=== PATIENT | male | born 1955 | race Caucasian/White ===

== ENCOUNTER → 2017-12-03 14:10 | Outpatient (CLI) | payer BC, SELFPAY ==
[2017-12-03 14:20] LABS: Microscopic, Urine URINE MICROSCOPIC (MICROSCOPIC)
[2017-12-03 14:41] LABS: Basophils % 0.4 % (0.1-2.0); Eosinophils # 0.1 K/mm3 (0.0-0.4); Eosinophils % 1.7 % (0.1-12.0); Hematocrit 43.5 % (42.0-52.0); Hemoglobin 14.8 g/dL (14.1-18.0); Lymphocytes # 1.6 K/mm3 (0.7-4.5); Lymphocytes % 31.2 K/mm3 (10-50); Mean Corpuscular HGB Conc 34.1 g/dL (31.8-35.4); Mean Corpuscular Hemoglobin 27.9 pg (27.0-31.2); Mean Corpuscular Volume 81.8 fl (80-94); Mean Platelet Volume 7.4 fl (7.4-10.4); Monocytes # 0.3 K/mm3 (0.1-1.0); Monocytes % 6.5 % (1.7-9.3); Neutrophils # 3.2 K/mm3 (1.8-7.8); Neutrophils % 60.2 % (37.0-80.0); Platelet Count 211 K/mm3 (142-424); Red Blood Count 5.32 M/mm3 (4.60-6.20); Red Cell Distribution Width 12.7 % (11.5-17.5); White Blood Count 5.2 K/mm3 (4.8-10.8)
[2017-12-03 14:42] LABS: Appearance,Urine SL CLOUDY (Clear); Bilirubin,Urine Negative (Negative); Blood, Urine TRACE-I (Negative); Color,Urine YELLOW (Yellow); Glucose,Urine (UA) Negative (Negative); Ketones,Urine Negative (Negative); Leukocyte Esterase,Urine Negative (Negative); Nitrate,Urine Negative (Negative); PH,Urine 6.5 (5.0-8.5); Protein,Urine Negative (Negative); Urobilinogen,Urine 0.2 EU/dl (0.2)
[2017-12-03 14:55] LABS: Bacteria,Urine 2+ /lpf; Mucus,Urine 3+ /lpf; Squamous Epithelial Cell,Urine Occasional #/hpf (0-5); WBC,Urine Occasional #/hpf (0-3)
[2017-12-03 15:22] LABS: Anion Gap 10.3 mEq/L (5-15); Blood Urea Nitrogen 15 mg/dL (7-18); Carbon Dioxide 28 mmol/L (21.0-32.0); Chloride 104 mmol/L (98-107); Creatinine,Serum 0.81 mg/dL (0.70-1.30); Estimated Glomerular Filt Rate 96 ml/min (>60); GFR (African American) 116 ML/MIN (>60); Glucose 106 mg/dL (74-106); Potassium 4.3 mmoL/L (3.5-5.1); Sodium 138 mmol/L (136-145)
== END ==
PROVIDERS: PCP Family Medicine; Visit Provider Surgery
DX: K42.9 Umbilical hernia without obstruction or gangrene (principal); Z01.818 Encounter for other preprocedural examination
CPT/HCPCS: 36415; 80048; 81001; 85025; 87086; 93005

== ENCOUNTER 2017-12-14 12:58 | Day surgery (SDC) | payer BC, SELFPAY ==
[2017-12-14] VITALS (14 sets, daily range): BP systolic 108–125; BP diastolic 62–78; PULSE 66–90; RESP 16–20; TEMP 36.3–43; O2SAT 92–98; BMI 31.1
--- NOTE | 2017-12-14 16:10 | P.OP_ITS ---
Date of procedure: 12/14/17 Pre-op Diagnosis:: Incarcerated umbilical hernia Post-op diagnosis:: same Procedure performed:: Laparoscopic-assisted open repair of incarcerated umbilical hernia Surgeon:: Abdulkadir Ramirez MD Cardiac Rehabilitation Program Director(s):: Deuce Vernon PRIMARY CARE NURSE PRACTITIONER:: Parag Miranda Anesthesia: GETA Estimated blood loss (mL): 25 Operative findings:: Incarcerated preperitoneal fat Operative note:: After informed consent was obtained, the patient was taken to the operating room and placed in the supine position. General anesthesia was induced and his abdomen was prepped and draped in a sterile fashion. After infiltration with local anesthetic a stab incision was made in the left upper quadrant and a Veress needle was placed in position. The abdomen was insufflated. A 5 mm optical trocar was placed in the left mid flank. Under direct visualization a 5 mm trocar was placed in the left upper quadrant and an additional 5 mm trocar was placed in the left lower quadrant. Evaluation revealed a 1.5 cm defect at the umbilicus with incarcerated preperitoneal fat. A large volume of preperitoneal fat was carefully removed using harmonic raquel. An incision was made overlying the defect. An 11 mm trocar was placed in position. The incarcerated preperitoneal fat was carefully removed through this trocar. The abdomen was irrigated. No sign of injury or bleeding was seen. A 6.4cm Vetralex mesh was placed in position and secured with interrupted Ethibond. The defect was then primarily closed with Ethibond and reevaluation laparoscopically revealed the mesh to be in good position. Pneumoperitoneum was released and all trocars were removed. All wounds were irrigated and skin was closed with 4-0 Monocryl in a subcuticular fashion. Steri-Strips were applied. The patient's anesthetic agents were reversed and he was extubated prior to transfer to recovery Pathology: none sent Condition: stable Disposition: PACU Complications:: No immediate
--- NOTE | 2017-12-14 16:21 | P.PN_ITS ---
[facility] Anesthesia Record Part I Intake, IV Amount: 1,000 Estimated blood loss (mL): 25 Urine output (mL): 0 Blood Products used (#): none Blood Pressure: 115/73 SaO2: 98 Pulse Rate: 69 Respiratory Rate: 16 Temperature: 97.4 F Patient is:: Awake, Mask O2
--- NOTE | 2017-12-14 16:21 | HMH.ANESII ---
[facility] Anesthesia Record Part II Discharge Time: 16:47 Destination: Surgical Day Care (OP Surgery) PACU nurse assessment reviewed?: Yes Patient Condition:: Good Anesthesia Complications:: None
--- NOTE | 2017-12-14 17:16 | PC.NURSE ---
1503-#16 fr coudae catheter inserted per AKOSUA Lomax. Reported per AKOSUA Lomax no urine output upon insertion and bleeding noted around meatus but has now stopped. aware and at bedside upon insertion of catheter as reported per AKOSUA Lomax. NO urine specimen obtained at insertion, will continue to monitor.
--- NOTE | 2017-12-14 17:20 | PC.NURSE ---
1610-No urine output noted to catheter bag at time of removing catheter. Small amount of bleeding with no clots noted from penis. Notified MD, no further orders. Will continue to monitor in PACU.
--- NOTE | 2017-12-14 17:41 | PC.NURSE ---
1627-PT DENIES NEED TO VOID AT THIS TIME UPON ASSESSMENT. PT EATING ICE CHIPS W/OUT DIFFICULTY. WILL CONTINUE TO MONITOR FOR FURTHER PENILE BLEEDING.
--- NOTE | 2017-12-14 17:42 | PC.NURSE ---
1617-REPORT RECIEVED FROM SIERRA THOMPSON FOLLOWING LAPAROSCOPIC ASSISTED OPEN INCARCERATED UMBILICAL HERNIA REPAIR PER WITH GENERAL ANESTHESIA PER SIERRA THOMPSON
--- NOTE | 2017-12-14 17:47 | PC.NURSE ---
1630-PT MEDICATED PER MAR FOR PAIN. PT RATES ABD PAIN 5/10. MEDICATED W/MOPRHINE 2MG IV. VSS. 1637-PT DENIES NEED TO VOID AT THIS TIME. PT REPORTS HE CONTINUES TO HAVE ABD PAIN AND RATES 5/10. MEDICATED PER MAR W/MORPHINE 2MG IV. VSS. PT CONTINUES TO EAT ICE CHIPS W/OUT DIFFICULTY. LS IMPROVING WITH COUGH, CTA.
--- NOTE | 2017-12-14 17:55 | PC.NURSE ---
1652-PT VOIDED PER URINAL AT THIS TIME. PT VOIDED ABOUT 25ML'S OF BLOODY URINE. AFTER PT VOIDED, MOD AMOUNT OF BLOODY DRAINAGE NOTED FROM PENIS TO GAUZE. MARCUS CARE PERFORMED. PT REPORTED BURNING SENSATION WITH VOIDING. WILL CONTINUE TO MONITOR FOR FURTHER BLEEDING. AWAITING TO TALK TO MD TO NOTIFY. 4588-MD @ BEDSIDE. NO FURTHER BLEEDING NOTED FROM PENIS AT THIS TIME. PT REPORTS BURNING SENSATION HAS SUBSIDED. PT DENIES URGE TO VOID OR PRESSURE. PT REPORTS NAUSEA AND ABD PAIN EASING, RATES 3/10 AFTER BEING MEDICATED. WILL CONTINUE TO MONITOR.
--- NOTE | 2017-12-14 17:59 | PC.NURSE ---
1642-PT REPORTS C/O NAUSEA. NOTIFIED SLOT ROUTER AND MEDICATED PER JAN W/PHENERGAN 6.25MG IV XONCE. VSS. 1646-PT REPORTS NAUSEA IS EASING. PT RATES ABD PAIN 4/10, MEDICATED PER JAN W/MORPHINE 2MG IV. VSS. PT ATTEMPTING TO VOID PER URINAL AT THIS TIME, WILL CONTINUE TO MONITOR.
--- NOTE | 2017-12-14 18:03 | PC.NURSE ---
170-DETAILED REPORT GIVEN TO AKOSUA DAWSON. 1703-PT TRANSPORTED TO POST OP VIA STRETCHER W/RAILS UP AND LEFT IN CARE OF AKOSUA DAWSON W/BED LOCKED IN LOWEST POSITION. VSS. PT STABLE.
== END 2017-12-14 18:35 | disposition home or self-care (01) ==
PROVIDERS: PCP Family Medicine; Visit Provider Surgery
PROC: 0WQF4ZZ Repair Abdominal Wall, Percutaneous Endoscopic Approach (ICD-10-PCS; CPT 49587; principal; 2017-12-14 10:30)
DX: K42.0 Umbilical hernia with obstruction, without gangrene (principal)
CPT/HCPCS: 49587; 96374; C1781; J0131; J2405; J2710

== ENCOUNTER → 2018-10-15 14:46 | Outpatient (POV) | payer BC, SELFPAY | PROVIDERS: Visit Provider Dermatology | DX: Z00.00 Encounter for general adult medical examination without abnormal findings (principal) ==

== ENCOUNTER → 2019-03-25 14:33 | Outpatient (POV) | payer BC, SELFPAY | PROVIDERS: Visit Provider Dermatology | DX: Z00.00 Encounter for general adult medical examination without abnormal findings (principal) ==

== ENCOUNTER → 2019-04-15 14:47 | Outpatient (POV) | payer BC, SELFPAY | PROVIDERS: Visit Provider Dermatology | DX: Z00.00 Encounter for general adult medical examination without abnormal findings (principal) ==

== ENCOUNTER → 2019-09-30 13:49 | Outpatient (POV) | payer BC, SELFPAY | PROVIDERS: Visit Provider Dermatology | DX: Z00.00 Encounter for general adult medical examination without abnormal findings (principal) ==

== ENCOUNTER → 2019-10-07 14:40 | Outpatient (POV) | payer BC, SELFPAY | PROVIDERS: Visit Provider Dermatology | DX: Z00.00 Encounter for general adult medical examination without abnormal findings (principal) ==

== ENCOUNTER → 2019-10-28 14:04 | Outpatient (POV) | payer BC, SELFPAY | PROVIDERS: Visit Provider Dermatology | DX: Z00.00 Encounter for general adult medical examination without abnormal findings (principal) ==

== ENCOUNTER → 2019-11-11 14:54 | Outpatient (POV) | payer BC, SELFPAY | PROVIDERS: Visit Provider Dermatology | DX: Z00.00 Encounter for general adult medical examination without abnormal findings (principal) ==

== ENCOUNTER → 2020-04-13 14:03 | Outpatient (POV) | payer BC, SELFPAY | PROVIDERS: PCP Family Medicine; Visit Provider Physician Assistant | DX: Z00.00 Encounter for general adult medical examination without abnormal findings (principal) ==

== ENCOUNTER 2020-08-04 16:51 | Emergency (ER) | payer BC, SELFPAY ==
--- NOTE | 2020-08-04 16:44 | ECG_ITS ---
APPROVED REPORT Exam: Resting ECG HR:74 bpm ECG Measurements Heart Rate 74 AXES MT 122 P 49 QRSd 86 QRS 36 QT 368 T 55 QTc 408 <Conclusion> Normal sinus rhythm Normal ECG Electronically signed by : Parag Patel, 08/08/2020 15:05:57
[2020-08-04 16:51] VITALS: BP 153/92; PULSE 81; RESP 20; TEMP 36.9; O2SAT 95; BMI 33.9
--- NOTE | 2020-08-04 16:55 | XR_ITS ---
PROCEDURE: XR CHEST 2V CLINICAL HISTORY: chest pain Chest pain, former smoker COMPARISON: CR CXR CHEST(2 VIEWS-NOT PORTABLE) from 02/15/[address] CHEST W/ CONTRAST from 02/22/2015 FINDINGS: Borderline cardiomegaly without failure. Fibrotic changes in the anterior clear space inferiorly. Mild coarsening of the bronchovascular markings. No lobar consolidation or collapse. Fibrotic changes are present in the lung base posteriorly on the right. There is an old right 5th rib fracture. IMPRESSION: COPD with chronic scarring. No change in the with no acute finding. Borderline cardiomegaly Dictated by: Tavo Rosenbaum MD 08/04/2020 18:18 Tavo Rosenbaum MD in [place] 08/04/2020 18:18
[2020-08-04 17:09] LABS: Basophils % 0.3 % (0.1-2.0); Eosinophils # 0.1 K/mm3 (0.0-0.4); Eosinophils % 0.9 % (0.1-12.0); Hematocrit 43.7 % (42.0-52.0); Hemoglobin 15.3 g/dL (14.1-18.0); Lymphocytes % 21.5 % (10-50); Mean Corpuscular HGB Conc 35.1 g/dL (31.8-35.4); Mean Corpuscular Hemoglobin 29.8 pg (27.0-31.2); Mean Corpuscular Volume 84.9 fl (80-94); Mean Platelet Volume 7.1 fl (7.4-10.4); Monocytes # 0.5 K/mm3 (0.1-1.0); Monocytes % 5.8 % (1.7-9.3); Neutrophils # 6.6 K/mm3 (1.8-7.8); Neutrophils % 71.5 % (37.0-80.0); Platelet Count 233 K/mm3 (142-424); Red Blood Count 5.15 M/mm3 (4.60-6.20); Red Cell Distribution Width 13.4 % (11.5-17.5); White Blood Count 9.2 K/mm3 (4.8-10.8)
[2020-08-04 17:11] LABS: Chloride 104 mmol/L (98-107)
--- NOTE | 2020-08-04 17:11 | HMH.EDCP ---
ED Disposition Clinical Impression: Non-cardiac chest pain Disposition: Home, Self-Care Condition on Discharge: Good Additional Instructions: You were seen on an emergency basis. It is very important that you follow up with your primary care provider and/or specialist as we discussed within 2 days. All labs and imaging were obtained and interpreted here to rule out life threatening emergencies, but your final results should be reviewed by your primary doctor at your follow up appointment. Please return to the emergency department if any of your symptoms worsen, or if they do not improve as we discussed. Referrals: Provider,Referral, [Referring] - - Critical Care Critical Care Time: No Attestation: On 08/04/20, the high probability of a clinically significant, sudden or life threatening deterioration of the following system(s) required my full and direct attention, intervention and personal management. The time I documented below is in addition to time spent performing reported procedures but includes the following listed in this critical care notation. Medical Decision Making - Medical Records Medical records reviewed: Yes: I reviewed the patient's medical records. - Raffy Inquiry Pt receiving controlled substance: No Vital Signs: 08/04/20 16:51 08/04/20 17:14 08/04/20 17:43 Temperature 98.5 F Temperature Source Oral Pulse Rate Pulse Rate [Right Radial] 81 71 69 Respiratory Rate 20 16 14 Blood Pressure Blood Pressure [Right Arm] 153/92 H 129/84 129/81 Blood Pressure Mean [Right Arm] 112 99 97 Blood Pressure Source Blood Pressure Source [Right Arm] Automatic Cuff Automatic Cuff Blood Pressure Position Blood Pressure Position [Right Arm] Sitting Sitting 02 Sat by Pulse Oximetry 95 95 96 Oxygen Delivery Method Room Air Room Air 08/04/20 18:36 08/04/20 19:04 08/04/20 19:50 Temperature 98.5 F Temperature Source Oral Pulse Rate 68 Pulse Rate [Right Radial] 63 64 Respiratory Rate 20 14 12 Blood Pressure 137/89 Blood Pressure [Right Arm] 132/80 128/84 Blood Pressure Mean [Right Arm] 97 98 Blood Pressure Source Automatic Cuff Blood Pressure Source [Right Arm] Automatic Cuff Automatic Cuff Blood Pressure Position Sitting Blood Pressure Position [Right Arm] Supine 02 Sat by Pulse Oximetry 92 L 96 Oxygen Delivery Method Room Air - Lab Data Lab Results 08/04/20 17:00: WBC 9.2, RBC 5.15, Hgb 15.3, Hct 43.7, MCV 84.9, MCH 29.8, MCHC 35.1, RDW 13.4, Plt Count 233, MPV 7.1 L, Neut % (Auto) 71.5, Lymph % (Auto) 21.5, Stokes % (Auto) 5.8, Eos % (Auto) 0.9, Baso % (Auto) 0.3, Neut # (Auto) 6.6, Lymph # (Auto) 2.0, Stokes # (Auto) 0.5, Eos # (Auto) 0.1, Baso # (Auto) 0.0 08/04/20 17:00: Sodium 138, Potassium 4.7, Chloride 104, Carbon Dioxide 27, Anion Gap 11.7, BUN 23 H, Creatinine 1.10, Estimated Creat Clear 106, Estimated GFR 67, Est GFR ( Amer) 81, Glucose 95, Calcium 9.2, Total Bilirubin 1.2, AST 25, ALT 30, Alkaline Phosphatase 68, Troponin I < 0.01, Total Protein 6.8, Albumin 4.1, Globulin 2.7, Albumin/Globulin Ratio 1.5 08/04/20 17:00: D-Dimer 0.30 08/04/20 18:54: Troponin I < 0.01 Result diagrams: 08/04/20 17:00 08/04/20 17:00 Orders (Tests/Meds): ED MEDICATIONS Discontinued Medications Generic Name Dose Route Start Last Admin Trade Name Freq PRN Reason Stop Dose Admin Aspirin 324 mg 08/04/20 16:55 08/04/20 17:19 Aspirin 81mg Chewable Tablet PO 08/04/20 16:56 324 mg ONCE ONE Administration ORDERS Category Date Time Status Troponin I Q3H Lab 08/04/20 23:00 Ordered Medical Decision Narrative: 64-year-old male presenting with chest pain. Nontoxic, afebrile, hemodynamically stable. Oxygenating well on room air. Atraumatic. Chest x-ray negative for acute disease. EKG nonischemic and without arrhythmia. D-dimer normal. Troponins are undetectable. CBC and CMP are nonactionable. No reproducible chest pain. Uncertain
[2020-08-04 17:12] LABS: Potassium 4.7 mmoL/L (3.5-5.1); Sodium 138 mmol/L (136-145)
[2020-08-04 17:14] VITALS: BP 129/84; PULSE 71; RESP 16; O2SAT 95
[2020-08-04 17:14] LABS: Alanine Aminotransferase 30 U/L (12-78); Alkaline Phosphatase 68 U/L (38-126); Anion Gap 11.7 mEq/L (5-15); Aspartate Amino Transferase 25 U/L (17-59); Bilirubin,Total 1.2 mg/dl (0.2-1.3); Blood Urea Nitrogen 23 mg/dl (9-20); Carbon Dioxide 27 mmol/L (22.0-30.0); Creatinine Clearance Estimated 106 mL/min (50-200); Estimated Glomerular Filt Rate 67 ml/min (>60); GFR (African American) 81 ML/MIN (>60)
[2020-08-04 17:15] LABS: Albumin Level 4.1 g/dl (3.5-5.0); Albumin/Globulin Ratio 1.5 (1.1-1.8); Calcium 9.2 mg/dl (8.4-10.2); Globulin 2.7 g/dL (1.3-3.2); Glucose 95 mg/dl (74-100); Total Protein,Serum 6.8 g/dl (6.3-8.2)
[2020-08-04 17:28] LABS: Troponin I < 0.01 ng/ml (0.00-0.034)
[2020-08-04 17:43] VITALS: BP 129/81; PULSE 69; RESP 14; O2SAT 96
[2020-08-04 18:36] VITALS: BP 132/80; PULSE 63; RESP 20; O2SAT 92
--- NOTE | 2020-08-04 18:47 | PC.NURSE ---
2ND TROPONIN DRAWN AND TO LAB FOR RESULTING.
--- NOTE | 2020-08-04 19:03 | PC.NURSE ---
report received from xiao tsangrn
[2020-08-04 19:04] VITALS: BP 128/84; PULSE 64; RESP 14; O2SAT 96
[2020-08-04 19:24] LABS: Troponin I < 0.01 ng/ml (0.00-0.034)
[2020-08-04 19:50] VITALS: BP 137/89; PULSE 68; RESP 12; TEMP 36.9; O2SAT 92
== END 2020-08-04 20:15 | disposition home or self-care (01) ==
PROVIDERS: Emergency Provider Physician Assistant; PCP Family Medicine
DX: R07.89 Other chest pain (principal); Z87.891 Personal history of nicotine dependence; Z90.09 Acquired absence of other part of head and neck
CPT/HCPCS: 71046; 80053; 84484; 85025; 85378; 93005; 99284

== ENCOUNTER → 2020-08-13 06:20 | Outpatient (CLI) | payer BC, SELFPAY ==
--- NOTE | 2020-08-13 | CA_ITS ---
APPROVED REPORT Exam: Exercise Treadmill Technologist: Mendy Sofia, Ht: 6 ft 0 in Wt: 230 lbs BSA: 2.26 m2 HR: 74 bpm BP: 115/78 mmHg Rhythm: SINUS RHYTHM Medical History Medications: ProAir,,,,, Allergies: No known drug allergies Stress Test Details Test: Sumit HR Resting HR: 82 bpm Max Heart Rate (APMHR): 154 bpm Max HR Achieved: 141 bpm Target HR (85% APMHR): 130 bpm % of APMHR: 91 Recovery HR: 98 bpm BP Resting BP: 115.0/78.0 mmHg Max BP: 175.0/83.0 mmHg Recovery BP: 175.0/83.0 mmHg ECG Resting ECG: SINUS RHYTHM Clinical Exercise duration: 06:31 min Highest Stage Achieved: Exercise capacity: 7.0 METs Stress ECG Conclusion SUMIT PROTOCOL COMPLETED. EXERCISED 06:31. METS = 7.0 MAX BP 175/83. MAX HEART RATE 141 BPM. STOPPED DUE TO SOA AND CHEST PRESSURE. OCCASIONAL PVC. OCCASIONAL PAC. 5 BEAT RUN OF ATRIAL TACH AT PEAK EXERCISE. LESS THAN 1.5MM ST DEPRESSION. IMAGES TO FOLLOW. Test Summary REST . . . . . . . Standing REST . . . . . . . Sitting REST 09:59 0.0 0.0 82 . 115/ 78 . . Stage 1 01:00 10.0 1.7 95 . . . . Stage 1 02:00 10.0 1.7 108 . . . . Stage 1 03:00 10.0 1.7 110 . 145/ 70 . . Stage 2 01:00 12.0 2.5 121 . . . . Stage 2 02:00 12.0 2.5 127 . . . . Stage 2 . . . . . . . Cardiolite injected Stage 2 03:00 12.0 2.5 132 . 150/ 65 . . Stage 3 00:31 14.0 3.4 139 . . . Stop exercise at 06:31 RECOVERY 01:00 0.0 0.0 125 . . . . RECOVERY 02:00 0.0 0.0 104 . . . . RECOVERY 03:00 0.0 0.0 98 . 175/ 83 . . RECOVERY 04:00 0.0 0.0 91 . 175/ 83 . . RECOVERY 05:00 0.0 0.0 89 . 143/ 78 . . RECOVERY 05:37 0.0 0.0 91 . 142/ 77 . . Electronically signed by : Nicko Garces, 08/13/2020 11:48:31
--- NOTE | 2020-08-13 06:28 | NM_ITS ---
APPROVED REPORT Exam: Nuclear Stress Test Indication: chest pain..short of breath..fatigue Patient Location: Outpatient Stress Tech: Celsa Kimberlyn [place] Tech:MARTY Schreiber RT(R)(N) Ht: 6 ft 0 in Wt: 230 lbs HR: 74 bpm BP: 115/78 mmHg BSA: 2.26 m2 History: chest pain..short of breath..fatigue Procedure: Patient exercised on Sumit protocol 6.31 minutes and sec, resting heart rate 74 bpm, resting blood pressure 115/78 mmHg, with exercise maximum heart rate achived was 141 bpm which is 92 % of the maximum predicted heart rate and blood pressure was 175/83 mmHg. Test was stopped due to Shortness of breath. Patient has Adequate exercise capacity, achieved 7.0 METs of workload on treadmill, the blood pressure response to exercise was Adequate. Electrocardiogram Resting electrocardiogram showed sinus rhythm, with exercise there is less than 1.[address] segment depression noted from the baseline EKG. The EKG portion of the exercise Myoview is negative for ischemia. Cardiac Stress and Resting SPECT Images: Cardiac Stress and Resting SPECT images were obtained using technetium 99m Myoview 32.0 mCi stress and 10.16 mCi at rest. Gated SPECT for the analysis of segmental wall motion and calculation of the ejection fraction also done. Cardiac stress and resting SPECT images show uniform myocardial activity without segmental perfusion abnormality, computer derived ejection fraction is over 65% with no regional wall motion abnormality, the right ventricle is normal size and contractility, however there is transient ischemic dilatation of the left ventricle seen, raising the concerns for presence of balanced ischemia. Conclusion: 1. The EKG portion of the exercise Myoview is negative for ischemia, patient has adequate exercise capacity achieved 7 mets of workload on treadmill, the blood pressure response to exercise was adequate, there was no exercise-induced chest discomfort, test was stopped due to shortness of breath 2. No scintigraphic evidence of reversible ischemia seen, computer derived ejection fraction is over 65% with no regional wall motion abnormality, right ventricle is normal size and contractility. There is transient ischemic dilatation of the left ventricle seen, raising the concerns for presence of balanced ischemia. 3. Abnormal exercise Myoview study. Electronically signed by : Nicko Garces, 08/13/2020 13:11:02
--- NOTE | 2020-08-13 09:18 | HMH.ITSHM ---
Current Home Medications as stated by this patient Roberto Morrell or territory account representative. [] proair
== END ==
PROVIDERS: PCP Family Medicine; Visit Provider Family Medicine
DX: R07.2 Precordial pain (principal)
CPT/HCPCS: 78454; 93017; A9502

== ENCOUNTER 2020-08-23 09:05 | Day surgery (SDC) | payer BC, SELFPAY ==
[2020-08-23] VITALS (13 sets, daily range): BP systolic 107–157; BP diastolic 67–100; PULSE 62–74; RESP 16; TEMP 36.8; O2SAT 90–97; BMI 33.0
--- NOTE | 2020-08-23 09:13 | CA_ITS ---
APPROVED REPORT EXAM: Comprehensive 2D, Doppler, and color-flow Echocardiogram Freelance Director: Debra Byrnes CRT Ht: 6 ft 0 in Wt: 244lbs BSA: 2.32 BP: 132/52 mmHg Indications: Chest Pain, COPD, Shortness of Breath, Fatigue, abn gxt 2D Dimensions LVOT 2.10 cm (M/F) 1.5-2.5 M-Mode Dimensions RVDd 2.38 cm (0.9-2.6) LVDd 5.81 cm (3.5-5.7) LVDs 3.55 cm (3.5-5.7) IVSd 1.09 cm (0.6-1.1) PWd 1.01 cm (0.6-1.1) EF (Teich) 68.50% FS 38.90% EDV (Teich) 167.20 mL ESV (Teich) 52.60 mL LV Diastology E/A Ratio 0.79 Mitral Valve MV A Velocity 92.00 (40-130 cm/s) Left Ventricle Left atrium is mildly enlarged, left ventricle is normal size, left ventricle wall thickness is upper limit of the normal, there is preserved left ventricular systolic function, visually estimated ejection fraction 55% with no regional wall motion abnormality, grade 1 diastolic dysfunction seen without tissue Doppler evidence of raise left atrial pressure. Right Ventricle Right atrium and right ventricular qualitatively mildly enlarged with normal contractility. Aortic Valve Aortic valve is minimally thickened and fibrosed, there is no aortic stenosis or aortic insufficiency. Mitral Valve Mitral valve is grossly normal, there is mild mitral regurgitation. Tricuspid Valve Tricuspid valve grossly normal, there is mild tricuspid regurgitation, tricuspid regurgitation jet velocity is inadequate for calculation of the right ventricular systolic pressure. Pulmonic Valve Pulmonic valve is poorly visualized. Great Vessels Aortic root is normal size. Pericardium No significant pericardial effusion noted. Conclusion 1. Mild biatrial enlargement, normal left ventricular size, mild concentric left ventricular hypertrophy, visually estimated ejection fraction 55% with no regional wall motion abnormality, grade 1 diastolic dysfunction seen without tissue Doppler evidence of raise left atrial pressure. 2. Mildly enlarged right ventricle with normal contractility. 3. Mild mitral and tricuspid regurgitation. 4. No significant pericardial effusion noted. Electronically signed by : Nicko Garces, 08/23/2020 18:25:49
--- NOTE | 2020-08-23 10:00 | IR_ITS ---
APPROVED REPORT Patient Location: Outpatient PROCEDURES Left heart catheterization Left ventriculogram Selective coronary angiogram INDICATION High risk abnormal Myoview Informed consent was obtained prior to the procedure. COMPLICATIONS none Estimated Blood Loss: less than 10 mls TECHNIQUE One percent lidocaine used to anesthetize the right anterior aspect of the wrist. The right radial artery was accessed via the Seldinger technique. A 6 Yakut sheath was placed in the right radial artery. 2.5 mg of verapamil, 800 mcg of nitroglycerin, 1mg Lidocaine and 5000 U Heparin were given through the arterial sheath. The trap catheter was also used to perform left heart catheterization, left ventriculogram and selective coronary angiogram. At the end of the procedure the sheath was removed good hemostasis was achieved using Traclet band, patient was transferred to the postop holding area in stable condition. ANGIOGRAPHIC RESULTS The left main artery Normal The left anterior descending artery Has mild proximal 10% smooth stenosis The circumflex artery Nondominant large and normal The right coronary artery Dominant normal The MELGOZA ventriculogram reveals Normal 65% The left ventricular end-diastolic pressure Elevated at 20 mmHg IMPRESSION Mild [id number] proximal LAD disease Normal ejection fraction Elevated LVEDP consistent with diastolic dysfunction PLAN 1. Treatment of diastolic dysfunction which likely accounts for transient LV dilatation 2. Risk factor modification Electronically signed by : Carlo Davidson, 08/23/2020 10:55:26
[2020-08-23 10:09] LABS: Chloride 105 mmol/L (98-107); Potassium 4.4 mmoL/L (3.5-5.1); Sodium 140 mmol/L (136-145)
[2020-08-23 10:10] LABS: White Blood Count 5.5 K/mm3 (4.8-10.8)
[2020-08-23 10:11] LABS: Basophils % 0.7 % (0.1-2.0); Eosinophils # 0.2 K/mm3 (0.0-0.4); Eosinophils % 2.9 % (0.1-12.0); Hematocrit 43.5 % (42.0-52.0); Hemoglobin 14.9 g/dL (14.1-18.0); Lymphocytes # 1.8 K/mm3 (0.7-4.5); Lymphocytes % 32.3 % (10-50); Mean Corpuscular HGB Conc 34.3 g/dL (31.8-35.4); Mean Corpuscular Volume 87.2 fl (80-94); Monocytes # 0.4 K/mm3 (0.1-1.0); Monocytes % 7.5 % (1.7-9.3); Neutrophils # 3.1 K/mm3 (1.8-7.8); Neutrophils % 56.6 % (37.0-80.0); Platelet Count 168 K/mm3 (142-424); Red Blood Count 4.99 M/mm3 (4.60-6.20); Red Cell Distribution Width 13.1 % (11.5-17.5)
[2020-08-23 10:12] LABS: Anion Gap 11.4 mEq/L (5-15); Blood Urea Nitrogen 19 mg/dl (9-20); Calcium 9.1 mg/dl (8.4-10.2); Carbon Dioxide 28 mmol/L (22.0-30.0); Creatinine Clearance Estimated 114 mL/min (50-200); Estimated Glomerular Filt Rate 84 ml/min (>60); GFR (African American) 102 ML/MIN (>60); Glucose 114 mg/dl (74-100)
[2020-08-23 10:32] LABS: Coronavirus 19 IgG Antibody Negative (Negative); Coronavirus 19 IgM Antibody Negative (Negative)
== END 2020-08-23 14:14 | disposition home or self-care (01) ==
LOC: CATHLAB 09:09
PROVIDERS: PCP Family Medicine; Visit Provider Internal Medicine
DX: I25.118 Atherosclerotic heart disease of native coronary artery with other forms of angina pectoris (principal); R06.00 Dyspnea, unspecified; R94.39 Abnormal result of other cardiovascular function study; Z87.891 Personal history of nicotine dependence; J44.9 Chronic obstructive pulmonary disease, unspecified
CPT/HCPCS: 80048; 85025; 86328; 93306; 93458; 99152; C1725; C1760; C1769; J1644; Q9967

== ENCOUNTER → 2020-10-05 10:21 | Outpatient (CLI) | payer BC, SELFPAY ==
[2020-10-05 11:06] LABS: Anion Gap 12.2 mEq/L (5-15); Blood Urea Nitrogen 18 mg/dl (9-20); Calcium 9.1 mg/dl (8.4-10.2); Carbon Dioxide 27 mmol/L (22.0-30.0); Chloride 104 mmol/L (98-107); Estimated Glomerular Filt Rate 84 ml/min (>60); GFR (African American) 102 ML/MIN (>60); Glucose 116 mg/dl (74-100); Potassium 4.2 mmoL/L (3.5-5.1); Sodium 139 mmol/L (136-145)
== END ==
PROVIDERS: Visit Provider Nurse Practitioner Family
DX: I10 Essential (primary) hypertension (principal); R94.30 Abnormal result of cardiovascular function study, unspecified; I25.118 Atherosclerotic heart disease of native coronary artery with other forms of angina pectoris
CPT/HCPCS: 36415; 80048

== ENCOUNTER → 2020-11-16 13:27 | Outpatient (POV) | payer BC, SELFPAY | PROVIDERS: Visit Provider Dermatology | DX: Z00.00 Encounter for general adult medical examination without abnormal findings (principal) ==

== ENCOUNTER → 2020-11-30 15:20 | Outpatient (POV) | payer BC, SELFPAY | PROVIDERS: Visit Provider Dermatology | DX: Z00.00 Encounter for general adult medical examination without abnormal findings (principal) ==

== ENCOUNTER → 2020-12-14 10:51 | Outpatient (POV) | payer BC, SELFPAY | PROVIDERS: Visit Provider Dermatology | DX: Z00.00 Encounter for general adult medical examination without abnormal findings (principal) ==

== ENCOUNTER → 2021-02-18 08:02 | Outpatient (CLI) | payer MEDICARE, SELFPAY ==
[2021-02-18 09:02] LABS: Alanine Aminotransferase 27 U/L (12-78); Albumin Level 4.2 g/dl (3.5-5.0); Albumin/Globulin Ratio 1.7 (1.1-1.8); Alkaline Phosphatase 70 U/L (38-126); Anion Gap 10.5 mEq/L (5-15); Aspartate Amino Transferase 33 U/L (17-59); Blood Urea Nitrogen 18 mg/dl (9-20); Calcium 9.2 mg/dl (8.4-10.2); Carbon Dioxide 30 mmol/L (22.0-30.0); Chloride 96 mmol/L (98-107); Chol/HDL Ratio 3.7 (1-3.5); Cholesterol 176 mg/dl (140-200); Estimated Glomerular Filt Rate 75 ml/min (>60); GFR (African American) 90 ML/MIN (>60); Globulin 2.5 g/dL (1.3-3.2); Glucose 117 mg/dl (74-100); HDL Cholesterol 47 mg/dl (40-60); Potassium 3.5 mmoL/L (3.5-5.1); Sodium 133 mmol/L (136-145); Total Protein,Serum 6.7 g/dl (6.3-8.2); Triglycerides 126 mg/dl (30-150); VLDL Cholesterol 25 mg/dL (0-40)
[2021-02-18 09:12] LABS: Direct LDL Cholesterol 105.74 mg/dL (100-129)
[2021-02-18 09:32] LABS: Prostate Specific Ag Screen 1.8 ng/ml (0.0-4.0)
== END ==
PROVIDERS: Visit Provider Family Medicine
DX: I10 Essential (primary) hypertension (principal); Z12.5 Encounter for screening for malignant neoplasm of prostate
CPT/HCPCS: 36415; 80053; 80061; G0103

== ENCOUNTER → 2021-03-26 08:33 | Outpatient (CLI) | payer MEDICARE, BC, SELFPAY ==
[2021-03-26 10:35] LABS: Coronavirus 19 IgG Antibody Positive (Negative); Coronavirus 19 IgM Antibody Negative (Negative)
== END ==
PROVIDERS: Visit Provider Internal Medicine Gastroenterology
DX: Z01.812 Encounter for preprocedural laboratory examination (principal); Z20.822 Contact with and (suspected) exposure to COVID-19; Z12.11 Encounter for screening for malignant neoplasm of colon
CPT/HCPCS: 36415; 86328

== ENCOUNTER 2021-03-28 11:03 | Day surgery (SDC) | payer MEDICARE, SELFPAY ==
[2021-03-24 10:53] VITALS: BMI 32.5
[2021-03-28 11:22] VITALS: BP 123/69; PULSE 92; RESP 18; TEMP 36.5; O2SAT 95
--- NOTE | 2021-03-28 12:19 | P.PCN_ITS ---
[facility] Procedure Note Procedure Note:: Colonoscopy Procedure Report: Colonoscopy with cold snare polypectomy Endoscopist: Phan Hernandez II, MD Referring physician: Gerardo Malcolm MD Date of Procedure: March 28, 2021 Equipment: Olympus 190 variable stiffness pediatric colonoscope Sedation: MAC sedation Indication: Mr. Morrell is a 65-year-old gentleman who is here for diagnostic colonoscopy secondary to a positive Cologuard test. The patient did have a normal colonoscopy 10 years ago. He reports no abdominal pain, weight loss, change in his bowel habits or rectal bleeding. He reports no family history of colon cancer. Procedure: Prior to the procedure, a history and physical exam was performed, and patient's medications and allergies were reviewed. The risks, benefits and alternatives of the sedation and procedure were discussed with the patient. All questions were answered and informed consent was obtained. The patient was brought to the procedure room. Patient identification and proposed procedure were verified by the physician and the nurse. The patient was placed in a left lateral decubitus position and the scope was passed under direct vision. Throughout the procedure, the patient's blood pressure, pulse, and oxygen saturations were monitored continuously. The colonoscopy was accomplished without difficulty. The patient tolerated the procedure well. Findings: On digital rectal examination there was normal rectal tone. There were no external hemorrhoids. The prostate was 2-3+, smooth, soft, symmetric without nodules. The colonoscope was introduced through the anal canal to the rectum and advanced to the cecum. The ileocecal valve and appendiceal orifice were identified. The scope was advanced a short distance into the ileum which appeared grossly normal. The scope was then withdrawn into the colon. The cecum, ascending and transverse colon and mucosa were grossly normal. There were 3 colon polyps (descending x1 (5 mm), sigmoid x1 (5 mm) and rectosigmoid x1 (8 mm)) which were all 3 removed via cold snare polypectomy. There were scattered diverticuli throughout the descending and sigmoid colon (LEFT colon). The rectum itself was normal. Upon retroflexion within the rectum there were grade 1-2 internal hemorrhoids. The preparation was excellent throughout with Dundee Preparation Score of 9. The cecal time was 12 minutes. Impression: 1. Colonic polyps x3 2. Left-sided diverticulosis 3. Grade 1-2 internal hemorrhoids Plan: I will follow up the polyp pathology and recommend repeat colonoscopy again in 3-5 years based upon the polyp size, number and polyp histology. I would encourage bulk fiber supplementation on a long-term daily maintenance basis.
[2021-03-28 12:20] VITALS: BP 102/69; PULSE 76; RESP 18; TEMP 36.4; O2SAT 94
[2021-03-28 12:30] VITALS: BP 108/66; PULSE 75; RESP 18; O2SAT 93
[2021-03-28 12:40] VITALS: BP 126/77; PULSE 74; RESP 18; TEMP 36.4; O2SAT 95
[2021-03-28 12:50] VITALS: BP 140/75; PULSE 71; RESP 18; TEMP 36.4; O2SAT 95
[2021-03-28 13:12] VITALS: BP 135/87; PULSE 77; RESP 18; TEMP 36.4; O2SAT 96
--- NOTE | 2021-03-28 17:17 | HMH.ANESCL ---
[facility] Anesthesia Checklist - Patient Identification Patient Identification: Arm Band - Structural Data Admitted From: Home Planned Operative Procedure/s: Colonoscopy Consent for Planned Operative Procedure(s) Verified: Yes Verified Documents: Surgical Consent, History and Physical - NPO Status Verified Time NPO: 00:00 - Additional verifications Anesthesia Reactions: No Hx Blood Transfusions: No Blood Transfusion Reaction: No - Airway Assessment C-Spine Mobility Assessed: Yes TMJ Mobility Assessed: Yes Dentition: Good Dentition - Neurological Assessment Level of Consciousness: Awake, Alert - Anesthesia Plan Anesthesia Risk discussed: Yes Anesthesia Plan: Verified ASA Class: III Anesthesia Type: MAC [facility] History Medical History: Reports:: Chronic Obstructive Pulmonary Disease (COPD), Coronary Artery Disease Denies:: Cancer, Diabetes Mellitus Type 1, Diabetes Mellitus Type 2, MRSA, Seizures *Have you ever received a pneumonia vaccine?: No *Have you received a flu vaccine this season?: Yes Other Medical History: Denies: Blood Transfusion Reaction Anesthesia experience/problems:: None Laterality Cases: Bilateral: Tonsillectomy Other Surgeries: Yes: No Previous Surgery, Hernia Repair Amputation: No Fractures: No - *Social History Smoking Status: Former smoker Tobacco Type: cigarettes Alcohol Intake: current Alcohol Intake Frequency:: 0-2 drinks per day Substance Use Type: denies use *Occupational Status:: employed Housing: house Household Members: spouse *Travel in the last 8 weeks: None Family Hx:: Hypertension
== END 2021-03-28 13:12 | disposition home or self-care (01) ==
LOC: OUTP 11:07
PROVIDERS: PCP Family Medicine; Visit Provider Internal Medicine Gastroenterology
PROC: 0DJD8ZZ Inspection of Lower Intestinal Tract, Via Natural or Artificial Opening Endoscopic (ICD-10-PCS; CPT 45378; principal; 2021-03-28 12:00)
DX: K63.5 Polyp of colon (principal); K57.30 Diverticulosis of large intestine without perforation or abscess without bleeding; K64.0 First degree hemorrhoids; J44.9 Chronic obstructive pulmonary disease, unspecified; I25.10 Atherosclerotic heart disease of native coronary artery without angina pectoris; Z87.891 Personal history of nicotine dependence; Z82.49 Family history of ischemic heart disease and other diseases of the circulatory system
CPT/HCPCS: 45385; 88305

== ENCOUNTER → 2021-05-17 13:58 | Outpatient (POV) | payer MEDICARE, SELFPAY | PROVIDERS: Visit Provider Dermatology | DX: Z00.00 Encounter for general adult medical examination without abnormal findings (principal) ==

== ENCOUNTER → 2021-06-21 15:44 | Outpatient (POV) | payer MEDICARE, SELFPAY | PROVIDERS: Visit Provider Dermatology | DX: Z00.00 Encounter for general adult medical examination without abnormal findings (principal) ==

== ENCOUNTER → 2021-07-12 15:29 | Outpatient (POV) | payer MEDICARE, SELFPAY | PROVIDERS: Visit Provider Dermatology | DX: Z00.00 Encounter for general adult medical examination without abnormal findings (principal) ==

== ENCOUNTER → 2022-02-08 09:14 | Outpatient (CLI) | payer MEDICARE, SELFPAY ==
[2022-02-08 10:35] LABS: Alanine Aminotransferase 41 U/L (12-78); Albumin/Globulin Ratio 1.7 (1.1-1.8); Alkaline Phosphatase 65 U/L (38-126); Aspartate Amino Transferase 39 U/L (17-59); Blood Urea Nitrogen 17 mg/dl (9-20); Calcium 8.6 mg/dl (8.4-10.2); Carbon Dioxide 34 mmol/L (22.0-30.0); Chloride 96 mmol/L (98-107); Chol/HDL Ratio 3.8 (1-3.5); Cholesterol 168 mg/dl (140-200); Estimated Glomerular Filt Rate 84 ml/min (>60); GFR (African American) 102 ML/MIN (>60); Globulin 2.4 g/dL (1.3-3.2); Glucose 122 mg/dl (74-100); HDL Cholesterol 44 mg/dl (40-60); Sodium 135 mmol/L (136-145); Total Protein,Serum 6.4 g/dl (6.3-8.2); Triglycerides 128 mg/dl (30-150); VLDL Cholesterol 26 mg/dL (0-40)
[2022-02-08 10:45] LABS: Direct LDL Cholesterol 94.09 mg/dL (100-129)
[2022-02-08 11:04] LABS: Prostate Specific Ag Screen 1.4 ng/ml (0.0-4.0)
[2022-02-08 15:04] LABS: Anion Gap 8.8 mEq/L (5-15); Potassium 3.8 mmoL/L (3.5-5.1)
== END ==
PROVIDERS: Visit Provider Family Medicine
DX: I10 Essential (primary) hypertension (principal); Z12.5 Encounter for screening for malignant neoplasm of prostate; Z13.220 Encounter for screening for lipoid disorders; Z79.899 Other long term (current) drug therapy
CPT/HCPCS: 36415; 80053; 80061; G0103

== ENCOUNTER → 2023-01-17 14:24 | Outpatient (CLI) | payer MEDICARE, SELFPAY ==
[2023-01-17 15:34] LABS: Alanine Aminotransferase 63 U/L (12-78); Albumin/Globulin Ratio 1.5 (1.1-1.8); Alkaline Phosphatase 85 U/L (38-126); Anion Gap 6.5 mEq/L (5-15); Aspartate Amino Transferase 51 U/L (17-59); Bilirubin,Total 0.9 mg/dl (0.2-1.3); Blood Urea Nitrogen 13 mg/dl (9-20); Calcium 8.6 mg/dl (8.4-10.2); Carbon Dioxide 29 mmol/L (22.0-30.0); Chloride 102 mmol/L (98-107); Chol/HDL Ratio 4.1 (1-3.5); Cholesterol 148 mg/dl (140-200); Estimated Glomerular Filt Rate 84 ml/min (>60); GFR (African American) 101 ML/MIN (>60); Globulin 2.7 g/dL (1.3-3.2); Glucose 115 mg/dl (74-100); HDL Cholesterol 36 mg/dl (40-60); Potassium 3.5 mmoL/L (3.5-5.1); Sodium 134 mmol/L (136-145); Total Protein,Serum 6.7 g/dl (6.3-8.2); Triglycerides 159 mg/dl (30-150); VLDL Cholesterol 32 mg/dL (0-40)
[2023-01-17 15:46] LABS: Direct LDL Cholesterol 90.75 mg/dL (100-129)
== END ==
PROVIDERS: PCP Family Medicine; Visit Provider Family Medicine
DX: Z00.00 Encounter for general adult medical examination without abnormal findings (principal); I10 Essential (primary) hypertension; J44.9 Chronic obstructive pulmonary disease, unspecified
CPT/HCPCS: 36415; 80053; 80061

== ENCOUNTER → 2023-08-13 06:52 | Outpatient (CLI) | payer MEDICARE, SELFPAY ==
--- NOTE | 2023-08-13 06:58 | US_ITS ---
FINAL REPORT CLINICAL HISTORY: ELEVATED LIVER FUNCTION TESTS COMPARISON: None FINDINGS: Sonographic images of the right upper quadrant were obtained. The pancreas is partially obscured. The liver is fatty infiltrated. There are several anechoic structures in the liver measuring up to 2.9 cm consistent with benign cysts. The gallbladder appears normal without evidence of gallstones.There is no evidence of biliary ductal dilatation.The common duct measures 10 mm. No definite evidence of choledocholithiasis. Limited images of the right kidney are unremarkable. IMPRESSION: Fatty liver. Several hepatic cysts up to 2.9 cm. Dilated common duct without evidence of choledocholithiasis. Reviewed, Interpreted and Dictated by Buddy Mceknzie MD Transcribed by Kate Beck Authenticated and [facility]
== END ==
PROVIDERS: PCP Family Medicine; Visit Provider Family Medicine
DX: R79.89 Other specified abnormal findings of blood chemistry (principal)
CPT/HCPCS: 76705

== ENCOUNTER 2023-11-10 08:57 | Emergency (ER) | payer MEDICARE, SELFPAY ==
[2023-11-10 09:10] VITALS: BP 143/86; PULSE 96; RESP 22; TEMP 37.4; O2SAT 94; BMI 35.9
--- NOTE | 2023-11-10 09:10 | EXP.UTC ---
Discharge Plan Disposition Patient Disposition: Home, Self-Care Condition: Good Prescriptions Prescriptions: New benzonatate [benzonatate] 100 mg capsule 100 mg PO TIDP PRN (Reason: Cough) Qty: 30 0RF methylprednisolone 4 mg Tablets,Dose Pack 4 mg PO DIRECTED Qty: 21 0RF amoxicillin-pot clavulanate 875-125 mg Tablet 1 tab PO Q12H Qty: 20 0RF guaifenesin [Mucinex] 600 mg tablet extended release 12hr 600 - 1,200 mg PO BIDP PRN (Reason: Congestion) Qty: 30 0RF No Action chlorthalidone 25 mg tablet 25 mg PO DAILY Stiolto Respimat 2.5-2.5 mcg/actuation mist 1 inh INHALATION DAILY Referrals Follow up/Referrals: Alfonzo Malcolm MD [Primary Care Provider] - See instructions Activity Restrictions/Add. Instructions Additional Instructions/Restrictions: Drink plenty of fluids. Take tylenol or ibuprofen for pain or fever. Take the medications as directed. Follow up with your regular doctor. GO TO THE ER FOR ANY WORSENING SYMPTOMS Clinical Impressions Clinical Impression: Sinusitis Instructions Patient Instructions: Sinusitis, DI for Sinusitis Discharge ED Provider: Sid Hartman [facility] General Stated complaint: congestion, sore throat Time Seen by Provider: 11/10/23 09:10 History of Present Illness Provider Complaint: He states that for the past 4 days he has had sinus congestion, ear pain, and sore throat. Related Data Home Medications Medication Instructions Recorded Confirmed chlorthalidone 25 mg tablet 25 mg PO DAILY 11/10/23 11/10/23 tiotropium 2.5 mcg-olodaterol 2.5 1 inh inhalation DAILY 11/10/23 11/10/23 mcg/actuation mist for inhalation (Stiolto Respimat) Previous Rx's Medication Instructions Recorded amoxicillin 875 mg-potassium 1 tab PO Q12H #20 tabs 11/10/23 clavulanate 125 mg tablet benzonatate 100 mg capsule 100 mg PO TIDP PRN Cough #30 caps 11/10/23 guaifenesin 600 mg tablet, 600 - 1,200 mg PO BIDP PRN 11/10/23 extended release 12 hr (Mucinex) Congestion #30 tabs methylprednisolone 4 mg tablets in 4 mg PO DIRECTED #21 tabs 11/10/23 a dose pack Allergies Allergy/AdvReac Type Severity Reaction Status Date / Time No Known Allergies Allergy Verified 10/05/20 09:02 [facility] Disclaimer: The information contained in this section may have been updated after the patient was seen, as this information can be updated by other users. Medical History (Updated 11/10/23 @ 09:20 by Sid Hartman APRN) Abnormal cardiovascular stress test Dyspnea Ex-smoker Fatigue Typical angina Social History Smoking Status: Former smoker tobacco type: cigarettes alcohol intake: never substance use type: denies use current occupational status: retired Travel in the last 8 weeks: None household members: spouse housing: house current occupational exposures/hazards: No ROS Obtained: Yes All systems reviewed & no additional complaints except as documented Constitutional Constitutional: Reports poor appetite Eyes Eyes: Reports system reviewed and no additional complaints, except as documented ENT Ears, Nose, Mouth, and Throat: Reports as per HPI Cardiovascular Cardiovascular: Reports system reviewed and no additional complaints, except as documented and Denies chest pain Respiratory Respiratory: Denies shortness of breath, Denies chest congestion, Reports cough, Denies stridor and Denies wheezing Gastrointestinal Gastrointestingal: Reports system reviewed and no additional complaints, except as documented; Denies abdominal pain, diarrhea or vomiting Musculoskeletal Musculoskeletal: Reports system reviewed and no additional complaints, except as documented and Denies arthralgias Integumentary/Breasts Skin/Breast: Reports system reviewed and no additional complaints, except as documented and Denies rash Neurologic Neurologic: Denies paresthesias Allergic/Immunologic Allergic/Immunologic: Denies wheezing P
[2023-11-10 09:22] VITALS: BP 143/86; PULSE 96; RESP 22; TEMP 37.4; O2SAT 94
[2023-11-10 19:27] LABS: UTC Strep Screen (Rapid) Negative (Negative)
== END 2023-11-10 09:26 | disposition home or self-care (01) ==
PROVIDERS: Emergency Provider Nurse Practitioner Family; PCP Family Medicine
DX: J01.90 Acute sinusitis, unspecified (principal); R07.0 Pain in throat; R09.81 Nasal congestion; H92.09 Otalgia, unspecified ear; I20.9 Angina pectoris, unspecified; Z87.891 Personal history of nicotine dependence; I10 Essential (primary) hypertension
CPT/HCPCS: 87880; 99204; 99212; G0463

== ENCOUNTER 2024-01-22 08:59 | Outpatient (CLI) | payer MEDICARE, SELFPAY ==
--- NOTE | 2024-01-22 09:04 | US_ITS ---
FINAL REPORT CLINICAL HISTORY: SCREENING FOR ABDOMINAL AORTIC ANEURYSM COMPARISON: None FINDINGS: ULTRASOUND ABDOMINAL AORTA Findings: Sagittal and transverse images with Doppler exam was performed of the aorta. There is no evidence of abdominal aortic aneurysm. Aorta measures up to 2.4 cm. Proximal iliac vessels are normal in caliber. Aorta is patent by Doppler exam without gross stenosis. IMPRESSION: No evidence of aortic aneurysm Reviewed, Interpreted and Dictated by Sujatha Mack MD Transcribed by Genia Washington Authenticated and [facility]
== END 2024-01-22 23:59 ==
LOC: RAD 09:00
PROVIDERS: PCP Family Medicine; Visit Provider Family Medicine
DX: Z13.6 Encounter for screening for cardiovascular disorders (principal)
CPT/HCPCS: 76770

== ENCOUNTER 2024-02-18 13:00 | Outpatient (CLI) | payer MEDICARE, SELFPAY ==
[2024-02-18 13:40] VITALS: PULSE 84; PULSE 87
[2024-02-18] MEDS: ALBUTEROL 0.083% 2.5 MG/3 ML NEB IH (13:40)
== END 2024-02-18 23:59 ==
LOC: RT 13:03
PROVIDERS: PCP Family Medicine; Visit Provider Internal Medicine Pulmonary Disease
DX: R06.09 Other forms of dyspnea (principal)
CPT/HCPCS: 94060; 94618; 94640; 94726; 94729

== ENCOUNTER 2024-04-01 14:54 | Outpatient (POV) | payer MEDICARE, SELFPAY | END 2024-04-01 23:59 | disposition home or self-care (01) | LOC: SC 14:54 | PROVIDERS: PCP Family Medicine; Visit Provider Dermatology | DX: Z00.00 Encounter for general adult medical examination without abnormal findings (principal) ==

== ENCOUNTER 2024-06-10 13:21 | Outpatient (POV) | payer MEDICARE, SELFPAY | END 2024-06-10 23:59 | disposition home or self-care (01) | LOC: SC 13:21 | PROVIDERS: PCP Family Medicine; Visit Provider Dermatology | DX: Z00.00 Encounter for general adult medical examination without abnormal findings (principal) ==

== ENCOUNTER 2024-06-26 12:50 | Outpatient (CLI) | payer MEDICARE, SELFPAY ==
--- NOTE | 2024-06-26 12:51 | CA_ITS ---
APPROVED REPORT EXAM: Comprehensive 2D, Doppler, and color-flow Echocardiogram Kiln Stacker: Estefany Ahn, [facility], RVS Ht: 6 ft 0 in Wt: 270lbs BSA: 2.42 BP: 139/69 mmHg Indications: Dyspnea, COPD, Ex-smoker, Abn stress test 2D Dimensions IVSd 1.21 cm M: 0.6-1.2 LVEF (Visual) 56.70 % PWd 1.20 cm M: 0.6 - 1.2 LA Volume 88.80 mL LVDd 4.75 cm M: 4.2 - 5.9 LA Volume Index 36.568808 mL/m2 (M/F) 16-34 LVDs 3.34 cm M: 2.5 - 4.0 Left Atrium 3.42 cm M: 3.0 - 4.0 M-Mode Dimensions LA Diam 3.92 cm (1.9-4.0) EPSs 0.72 cm TAPSE 2.47 (<1.7) LV Diastology E Decel Time 193 (160-240 msec) E/A Ratio 0.79 MED A' 12.00 cm/s LAT A' 12.80 cm/s Aortic Valve EARNEST Index 1.38 cm2/m2 AoV Peak Asad. 120.0 (50-130 cm/s) AO Peak GR. 5.70 mmHg AO Mean GR. 2.80 (<5 mmHg) AO VTI 22.9 (18-25 cm) EARNEST (VTI) 3.43 (2.5-4.5 cm2) Mitral Valve MV A Velocity 89.0 (40-130 cm/s) E/A Ratio 0.79 Pulmonary Valve PV Peak Velocity 93.0 (50-150 cm/s) Tricuspid Valve TR P. Velocity 118.00 cm/s RAP Estimate 10.00 mmHg RVSP 15.50 mmHg Left Ventricle The left ventricle is normal size. The left ventricular systolic function is normal. The left ventricular ejection fraction is within the normal range. Proximal septal thickening is noted. There is normal LV segmental wall motion. Transmitral Doppler flow pattern suggests impaired LV relaxation. LVEF is 55%. Right Ventricle Right ventricle is mildly dilated. The right ventricular systolic function is normal. Atria The left atrium size is normal. The right atrium size is normal. There is no Doppler evidence of interatrial shunt. Aortic Valve The aortic valve opens well. There is no aortic valvular stenosis. No aortic regurgitation is present. Mitral Valve The mitral valve is normal in structure. No evidence of mitral valve stenosis. Trace mitral regurgitation. Tricuspid Valve The tricuspid valve leaflets are thin and pliable. Trace tricuspid regurgitation. There is insufficient TR jet to estimate RVSP. Pulmonic Valve The pulmonary valve is normal in structure. Trace pulmonic regurgitation. Great Vessels The aortic root is normal in size. The ascending aorta is normal in size. IVC is normal in size and collapses >50% with inspiration. Pericardium There is no pericardial effusion. Other Information Study Quality: Fair Conclusion Normal biventricular systolic function. Mild RV dilation. No significant valvular stenosis or regurgitation. Electronically signed by : Amara Gruber MD 06/29/2024 22:35:11
== END 2024-06-26 23:59 | disposition home or self-care (01) ==
LOC: RT 12:51
PROVIDERS: PCP Family Medicine; Visit Provider Physician Assistant
DX: R40.0 Somnolence (principal); R06.09 Other forms of dyspnea; Z87.09 Personal history of other diseases of the respiratory system; Z87.891 Personal history of nicotine dependence; I10 Essential (primary) hypertension; I25.118 Atherosclerotic heart disease of native coronary artery with other forms of angina pectoris; R94.30 Abnormal result of cardiovascular function study, unspecified
CPT/HCPCS: 93306

== ENCOUNTER → 2024-07-21 08:52 | Outpatient (CLI) | payer MEDICARE, SELFPAY | LOC: SL 08:53 | PROVIDERS: PCP Family Medicine; Visit Provider Physician Assistant | DX: G47.33 Obstructive sleep apnea (adult) (pediatric); G47.36 Sleep related hypoventilation in conditions classified elsewhere | CPT/HCPCS: G0399 ==

== ENCOUNTER → 2024-08-28 20:23 | Outpatient (CLI) | payer MEDICARE, SELFPAY | PROVIDERS: PCP Family Medicine; Visit Provider Physician Assistant | DX: G47.33 Obstructive sleep apnea (adult) (pediatric) (principal) | CPT/HCPCS: 95811 ==

== ENCOUNTER 2024-10-14 13:20 | Outpatient (POV) | payer MEDICARE, SELFPAY | END 2024-10-14 23:59 | disposition home or self-care (01) | LOC: SC 10-15 06:56 | PROVIDERS: Visit Provider Dermatology | DX: Z00.00 Encounter for general adult medical examination without abnormal findings (principal) ==

== ENCOUNTER → 2024-11-14 11:55 | Outpatient (CLI) | payer MEDICARE, SELFPAY | LOC: SL 11:57 | PROVIDERS: PCP Family Medicine; Visit Provider Physician Assistant | DX: G47.34 Idiopathic sleep related nonobstructive alveolar hypoventilation (principal) | CPT/HCPCS: 94762 ==

== ENCOUNTER 2025-02-12 12:00 | Outpatient (CLI) | payer MEDICARE, SELFPAY ==
--- NOTE | 2025-02-12 | CA_ITS ---
APPROVED REPORT Exam: Exercise Treadmill Technologist: Kathi Lima Ht: 6 ft 0 in Wt: 278 lbs BSA: 2.45 m2 HR: 78 bpm BP: 130/79 mmHg Medical History Medical History: Smoking Medications: Chlorthalidone, Loratadine, Omeprazole, Stiolto Allergies: No known drug allergies Cardiac Risk Factors: FHX of CAD, Smoking Stress Test Details Test: Exercise stress testing was performed using a Sumit protocol. HR Resting HR: 78 bpm Max Heart Rate (APMHR): 149 bpm Target HR (85% APMHR): 127 bpm Recovery HR: 93 bpm BP Resting BP: 130.0/79.0 mmHg Max BP: 192.0/79.0 mmHg Recovery BP: 155.0/77.0 mmHg ECG Clinical Highest Stage Achieved: Stage 2: 2.5 mph at 12% grade. Stress ECG Conclusion Pt had mild SOA Injected @ 2:52 Paused protocol due to soa and leg weakness Occ PVCs. Couplets Electronically signed by : Amara Gruber MD 02/15/2025 21:24:55
--- NOTE | 2025-02-12 12:01 | NM_ITS ---
APPROVED REPORT Exam: Nuclear Stress Test Indication: Chest pain, SOB, HTN Patient Location: Outpatient Stress Tech: Kathi Lima [place] Tech:Elena ToroMARTY RT(R)(N) Ht: 6 ft 0 in Wt: 270 lbs HR: 79 bpm BP: 150/86 mmHg BSA: 2.42 m2 TID: 1.05 History: Chest pain, SOB, HTN Procedure: Patient exercised on Sumit protocol 3:54 minutes and sec, resting heart rate 79 bpm, resting blood pressure 150/86 mmHg, with exercise maximum heart rate achived was 138 bpm which is 92 % of the maximum predicted heart rate and blood pressure was 192/79 mmHg. Test was stopped due to SOB. Patient denied any complaint of chest pain. Patient has Fair exercise capacity, achieved 4.7 METs of workload on treadmill, the blood pressure response to exercise was Normal. Cardiac Stress and Resting SPECT Images: Cardiac Stress and Resting SPECT images were obtained using technetium 99m Myoview 32.5 mCi stress and 10.34 mCi at rest. Urology complete significant soft tissue overlap with the cardiac borders. This may affect the diagnostic interpretation of the study findings. Resting and stress imaging in supine and prone positions demonstrate a medium sized, moderate, predominantly reversible perfusion defect in the basal to mid inferior LV sims, as well as in the apical LV wall. Gated imaging demonstrates normal global and regional LV systolic function. LVEF is calculated at 65%. Conclusion: Technically difficult study. Medium sized, moderate, predominantly reversible perfusion defect in the basal to mid inferior LV sims, as well as in the apical LV wall. Findings are suggestive of reversible ischemia. Gated imaging demonstrates normal global and regional LV systolic function. LVEF is calculated at 65%. Electronically signed by : Amara Gruber MD 02/15/2025 21:14:58
[2025-02-12] MEDS: SODIUM CHLORIDE 0.9% 10ML SYR (RAD ONLY) 10 ML IV ×2 (13:46)
[2025-02-12] MEDS: ISOTOPE MYOVIEW (PER STUDY) 1 DOSE IV (13:46)
== END 2025-02-12 23:59 | disposition home or self-care (01) ==
LOC: RAD 12:01
PROVIDERS: PCP Family Medicine; Visit Provider Physician Assistant
DX: I20.9 Angina pectoris, unspecified (principal); R06.09 Other forms of dyspnea
CPT/HCPCS: 78452; 93017; 93018; 93306; A9502

== ENCOUNTER 2025-03-02 08:32 | Day surgery (SDC) | payer MEDICARE, SELFPAY ==
[2025-03-02] VITALS (11 sets, daily range): BP systolic 91–162; BP diastolic 56–100; PULSE 61–80; RESP 16–20; O2SAT 91–99; BMI 36.3
--- NOTE | 2025-03-02 07:05 | IR_ITS ---
APPROVED REPORT Patient Location: Outpatient PROCEDURES Left heart catheterization Left ventriculogram Selective coronary angiogram INDICATION Abnormal Myoview, Angina pectoris, Informed consent was obtained prior to the procedure. COMPLICATIONS NONE Estimated Blood Loss: LESS THAN 10 ML TECHNIQUE One percent lidocaine used to anesthetize the right anterior aspect of the wrist. The right radial artery was accessed via the Seldinger technique. A 6 [place] sheath was placed in the right radial artery. 2.5 mg of Verapamil, 800 mcg of nitroglycerin, 1mg Lidocaine and 5000 U Heparin were given through the arterial sheath. The 6 [place] JL 3 guide catheter was also used to perform left heart catheterization, left ventriculogram and selective coronary angiogram. At the end of the procedure the sheath was removed good hemostasis was achieved using Traclet band, patient was transferred to the postop holding area in stable condition. 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 May be reasonable to proceed with CCTA to determine if the right coronary artery has a malignant course 2. Medical management for coronary disease Electronically signed by : Carlo Davidson MD 03/02/2025 10:32:45
[2025-03-02 08:50] LABS: Basophils # 0.1 K/mm3 (0-0.2); Basophils % 0.6 % (0.1-2.0); Eosinophils # 0.1 K/mm3 (0.0-0.4); Eosinophils % 0.7 % (0.1-12.0); Hematocrit 43.1 % (42.0-52.0); Hemoglobin 14.4 g/dL (14.1-18.0); Lymphocytes # 2.7 K/mm3 (0.7-4.5); Lymphocytes % 32.4 % (10-50); Mean Corpuscular HGB Conc 33.4 g/dL (31.8-35.4); Mean Corpuscular Hemoglobin 26.6 pg (27.0-31.2); Mean Corpuscular Volume 79.7 fl (80-94); Mean Platelet Volume 9.3 fl (7.4-10.4); Monocytes # 0.9 K/mm3 (0.1-1.0); Neutrophils # 4.5 K/mm3 (1.8-7.8); Neutrophils % 54.7 % (37.0-80.0); Platelet Count 255 K/mm3 (142-424); Red Blood Count 5.41 M/mm3 (4.60-6.20); White Blood Count 8.3 K/mm3 (4.8-10.8)
[2025-03-02 08:55] LABS: Chloride 96 mmol/L (98-107); Sodium 136 mmol/L (136-145)
[2025-03-02 08:56] LABS: Potassium 3.4 mmoL/L (3.5-5.1)
[2025-03-02 08:58] LABS: Anion Gap 13.4 mEq/L (5-15); Blood Urea Nitrogen 14 mg/dl (9-20); Carbon Dioxide 30 mmol/L (22.0-30.0); Creatinine Clearance Estimated 109 mL/min (50-200); Estimated Glomerular Filt Rate 66 ml/min (>60); GFR (African American) 80 ML/MIN (>60)
[2025-03-02 08:59] LABS: Calcium 9.2 mg/dl (8.4-10.2); Glucose 111 mg/dl (74-100)
[2025-03-02] MEDS: NITROGLYCERIN 800MCG/8ML SYR (CATH LAB) 800 MCG IA (10:12)
[2025-03-02] MEDS: FENTANYL 100MCG/2ML VIAL 50 MCG IV (10:12)
[2025-03-02] MEDS: MIDAZOLAM HCL 1MG/ML 5ML VIAL 1 MG IV (10:12)
[2025-03-02] MEDS: 0.9 % SODIUM CHLORIDE 500 ML 25 ML IV (10:12)
[2025-03-02] MEDS: LIDOCAINE 1% 10ML MDV 20 ML IJ (10:13)
[2025-03-02] MEDS: HEPARIN 1,000 UNITS/ML 10ML VIAL (CATH LAB) 10000 UNIT IV (10:13)
[2025-03-02] MEDS: diphenhydrAMINE 50MG/ML VIAL 50 MG IV (10:14)
[2025-03-02] MEDS: HEPARIN 1,000 UNITS/500ML NS (CATH LAB) 3000 UNIT IV (10:14)
[2025-03-02] MEDS: VERAPAMIL 2.5MG/ML 2ML VIAL 2.5 MG IV (10:14)
[2025-03-02] MEDS: IOPAMIDOL-370 (76%);100ML BOTTLE 90 ML IV (13:49)
== END 2025-03-02 13:23 | disposition home or self-care (01) ==
LOC: CATHLAB 08:32
PROVIDERS: PCP Family Medicine; Visit Provider Internal Medicine
DX: I25.118 Atherosclerotic heart disease of native coronary artery with other forms of angina pectoris (principal); J44.9 Chronic obstructive pulmonary disease, unspecified; R93.1 Abnormal findings on diagnostic imaging of heart and coronary circulation; R06.09 Other forms of dyspnea; Z79.899 Other long term (current) drug therapy; Z87.891 Personal history of nicotine dependence; Z79.85 Long-term (current) use of injectable non-insulin antidiabetic drugs; I10 Essential (primary) hypertension
CPT/HCPCS: 80048; 85025; 93458; 99152; C1725; C1769; J1200; J1644; J3010; Q9967

== ENCOUNTER 2025-04-27 12:52 | Outpatient (CLI) | payer MEDICARE, SELFPAY ==
[2025-04-27 13:25] VITALS: PULSE 84; PULSE 88
[2025-04-27] MEDS: ALBUTEROL 0.083% 2.5 MG/3 ML NEB IH (13:25)
== END 2025-04-27 23:59 | disposition home or self-care (01) ==
LOC: RT 12:53
PROVIDERS: PCP Family Medicine; Visit Provider Internal Medicine Pulmonary Disease
DX: J44.9 Chronic obstructive pulmonary disease, unspecified (principal)
CPT/HCPCS: 94060; 94618; 94640